=== PATIENT | female | born 1995 | race Caucasian/White ===

== ENCOUNTER 2022-03-31 08:53 | Outpatient (CLI) | payer OTHER ==
--- NOTE | 2022-03-31 18:03 | XRAY Report ---
PROCEDURE: Foot 3 View BILAT INDICATIONS: BILAT FOOT PAIN TECHNIQUE: 3 views of the foot were acquired. COMPARISON: None FINDINGS: Bones: No fractures or dislocations. No suspicious bony lesions. Soft tissues: No tibiotalar joint effusion. Achilles tendon appears normal. IMPRESSION: Unremarkable exam. Reviewed by: Sarah Bal MD on 03/31/2022 5:02 PM YANI Approved by: Sarah Bal MD on 03/31/2022 5:02 PM AKMARIAM Station ID: [id number]
== END 2022-03-31 23:59 | disposition home or self-care (01) ==
LOC: DI.WOS 08:53
PROVIDERS: ATTEND Physician Assistant
DX: M79.671 Pain in right foot (principal); M79.672 Pain in left foot

== ENCOUNTER 2022-04-01 09:57 | Outpatient (CLI) | payer OTHER ==
--- NOTE | 2022-04-01 13:47 | MRI Report ---
PROCEDURE: Lower Leg (Tib-Fib) LT W/O INDICATIONS: ENTHESOPATHY LOWER LIMB TECHNIQUE: Noncontrast coronal and sagittal T1 spin echo and STIR; axial T1 spin echo and T2 fast spin echo with fat saturation through the left tibia/fibula. COMPARISON: None. FINDINGS: Image quality: Excellent. BONES: The visualized bone marrow demonstrates normal signal on all sequences. The overlying cortex appears intact. No fractures lines or intra-osseous lesions. SOFT TISSUES: The scanned muscles demonstrate normal overall bulk and internal signal. Subcutaneous tissues appear normal as well. No soft tissue masses are present. IMPRESSION: No MR evidence of stress injury. Reviewed by: Owen Giordano MD on 04/01/2022 1:46 PM PDT Approved by: Owen Giordano MD on 04/01/2022 1:46 PM PDT Station ID: [id number]
--- NOTE | 2022-04-01 14:35 | MRI Report ---
PROCEDURE: Lower Leg (Tib-Fib) LT W/O INDICATIONS: ENTHESOPATHY LOWER LIMB TECHNIQUE: Noncontrast coronal and sagittal T1 spin echo and STIR; axial T1 spin echo and T2 fast spin echo with fat saturation through the right tibia/fibula. COMPARISON: None. FINDINGS: Image quality: Excellent. BONES: Linear T2 hyperintense/T1 hypointense signal seen in the posterior aspect of the mid tibia (40 1/501-13). The visualized bone marrow otherwise demonstrates normal signal on all sequences. The over lying cortex appears intact. No intra-osseous lesions. SOFT TISSUES: The scanned muscles demonstrate normal overall bulk and internal signal. Subcutaneous tissues appear normal as well. No soft tissue masses are present. IMPRESSION: Linear focus of signal in the posterior aspect of the mid tibia, favored reflect a promi nent vessel. Reviewed by: Owen Giordano MD on 04/01/2022 2:34 PM PDT Approved by: Owen Giordano MD on 04/01/2022 2:34 PM PDT Station ID: [id number]
== END 2022-04-01 09:58 | disposition home or self-care (01) ==
LOC: DI 09:57
PROVIDERS: ATTEND Student in an Organized Health Care Education/Training Program
DX: R93.6 Abnormal findings on diagnostic imaging of limbs (principal)